=== PATIENT | female | born 1960 | race Caucasian/White ===

== ENCOUNTER 2023-12-17 02:58 | Emergency (ER) | payer BC ==
--- NOTE | 2023-12-17 03:36 | ED ---
Fall HPI - General Chief Complaint: Fall Stated Complaint: fall Time Seen by Provider: 12/17/23 03:29 Source: patient, EMS Mode of arrival: EMS - History of Present Illness Initial Comments: This patient is a 63-year-old woman who presents to evaluation after a fall. The patient is brought by ambulance. Fall occurred just prior to arrival. Patient not able to bear any weight. Indicates pain throughout the entire lower portion of the leg. Denies previous injury or surgery. No numbness into the foot. MD Complaint: fall -: minutes(s) Fall From: down stairs (#) When Fall Occurred: just prior to arrival Fall Witnessed: no Place Fall Occurred: home Loss of Consciousness: none Prolonged Down Time?: no Location - Extremities: Right: Leg Severity: moderate Context: tripped/slipped Associated Symptoms: denies - Related Data Previous Rx's Medication Instructions Recorded HYDROcodone/APAP 5-325MG [Gleason 1 tab PO Q4HR PRN 3 Days #18 tab 12/17/23 5-325] HYDROcodone/APAP 5-325MG [Gleason 1 tab PO Q4HR PRN 3 Days #18 tab 12/17/23 5-325] Ondansetron Odt [Zofran ODT] 4 mg PO Q8HR PRN #10 tab 12/17/23 Allergies Allergy/AdvReac Type Severity Reaction Status Date / Time propoxyphene [From Darvon] AdvReac Unknown Verified 12/17/23 03:07 Sulfa (Sulfonamide AdvReac Nausea & Verified 12/17/23 03:07 Antibiotics) Vomiting Review of Systems ROS Statement: Those systems with pertinent positive or pertinent negative responses have been documented in the HPI. ROS Other: All systems not noted in ROS Statement are negative. Constitutional: Denies: fever, weakness Respiratory: Denies: cough, dyspnea Cardiovascular: Denies: chest pain, palpitations, syncope Gastrointestinal: Denies: abdominal pain, nausea, vomiting Musculoskeletal: Reports: as per HPI, arthralgia. Denies: back pain Skin: Denies: rash Neurological: Denies: headache, weakness, numbness Past Medical History Past Medical History: No Reported History Additional Past Surgical History / Comment(s): breast cancer, lymph node left breast, Smoking Status: Never smoker Past Alcohol Use History: Rare Past Drug Use History: None Reported General Exam General appearance: alert, in no apparent distress Head exam: Present: atraumatic, normocephalic Eye exam: Present: normal appearance. Absent: scleral icterus, conjunctival injection Neck exam: Present: normal inspection, full ROM. Absent: tenderness Respiratory exam: Present: normal lung sounds bilaterally. Absent: respiratory distress, wheezes, rales, rhonchi, stridor, chest wall tenderness, accessory muscle use Cardiovascular Exam: Present: regular rate, normal rhythm, normal heart sounds. Absent: systolic murmur, diastolic murmur, rubs, gallop GI/Abdominal exam: Present: soft. Absent: distended, tenderness, guarding, rebound, rigid, mass Extremities exam: Present: normal inspection, tenderness, normal capillary refill. Absent: full ROM, pedal edema, calf tenderness Back exam: Present: normal inspection. Absent: vertebral tenderness Neurological exam: Present: alert. Absent: motor sensory deficit Skin exam: Present: warm, dry, intact, normal color. Absent: rash Course Vital Signs 12/17/23 12/17/23 12/17/23 03:02 04:06 06:00 Temperature 98.5 F Pulse Rate 101 H 112 H 101 H Respiratory 19 17 18 Rate Blood Pressure 161/91 136/81 142/81 O2 Sat by Pulse 97 98 Oximetry 12/17/23 12/17/23 07:55 09:04 Temperature 98.7 F 98.4 F Pulse Rate 98 96 Respiratory 16 20 Rate Blood Pressure 134/89 138/81 O2 Sat by Pulse 97 98 Oximetry Medical Decision Making - Medical Decision Making Patient is 63-year-old woman with right leg pain following fall. She does have proximal fibula spiral fracture strongly suggestive of Maisonneuve injury. No obvious widening of the ankle mortise. There is some tenderness with squeeze at the ankle. The patient is splinted and will be nonweightbearing. She lives in [place] and would like to return home to see orthopedic surgery. Was pt. sent in by a medical professional or institution ([facility], [facility], urgent care, hospital, or [place] [facility] facility...) When possible be specific @ -[No] Did you speak to anyone other than the patient for history (EMS, parent, family, police, friend...)? What history was obtained from this source @ -[No] Did you review nursing and triage notes (agree or disagree)? Why? @ -[I reviewed and agree with nursing and triage notes] Were old charts reviewed (outside hosp., previous admission, EMS record, old EKG, old radiological studies, urgent care reports/EKG's, [place] [facility] records)? Report findings @ -[No old charts were reviewed] Differential Diagnosis (chest pain, altered mental status, abdominal pain women, abdominal pain men, vaginal bleeding, weakness, fever, dyspnea, syncope, headache, dizziness, GI bleed, back pain, seizure, CVA, palpatations, mental health, musculoskeletal)? @ -[Differential Musculoskeletal Muscular strain, contusion, ligament sprain, fracture, arthritis, septic arthritis, bursitis, cellulitis, muscle spasm, nerve compression, DVT, arterial occlusion, herpes zoster, electrolyte abnormality, tumor.... This is not meant to be in all inclusive list EKG interpreted by me (3pts min.). @ -[As above] X-rays interpreted by me (1pt min.). @ -[I interpreted as above CT interpreted by me (1pt min.). @ -[None done] U/S interpreted by me (1pt. min.). @ -[None done] What testing was considered but not performed or refused? (CT, X-rays, U/S, labs)? Why? @ -[None] What meds were considered but not given or refused? Why? @ -[None] Did you discuss the management of the patient with other professionals (elvis cárdenas i.e. , PA, [facility], lab, RT, psych nurse, addiction social worker, funeral greeter, teacher, community arts officer, sample case porter)? Give summary @ -[No] Was smoking cessation discussed for >3mins.? @ -[No] Was critical care preformed (if so, how long)? @ -[No] Were there social determinants of health that impacted care today? How? (Homelessness, low income, unemployed, alcoholism, drug addiction, transportation, low edu. Level, literacy, decrease access to med. care, alf, rehab)? @ -[No] Was there de-escalation of care discussed even if they declined (Discuss DNR or withdrawal of care, Hospice)? DNR status @ -[No] What co-morbidities impacted this encounter? (DM, HTN, Smoking, COPD, CAD, Cancer, CVA, ARF, Chemo, Hep., AIDS, mental health diagnosis, sleep apnea, morbid obesity)? @ -[None] Was patient admitted / discharged? Hospital course, mention meds given and route, prescriptions, significant lab abnormalities, going to OR and other pertinent info. @ -[See the above note Undiagnosed new problem with uncertain prognosis? @ -[No] Drug Therapy requiring intensive monitoring for toxicity (Heparin, Nitro, Insulin, Cardizem)? @ -[No] Were any procedures done? @ -[No] Diagnosis/symptom? @ -[Acute proximal fibula fracture Acute, or Chronic, or Acute on Chronic? @ -[Acute Uncomplicated (without systemic symptoms) or Complicated (systemic symptoms)? @ -[Uncomplicated Side effects of treatment? @ -[No] Exacerbation, Progression, or Severe Exacerbation? @ -[No] Poses a threat to life or bodily function? How? (Chest pain, [place], [place], pneumonia, PE, COPD, DKA, ARF, appy, cholecystitis, CVA, Diverticulitis, Homicidal, Suicidal, threat to staff... and all critical care pts) @ -[No] - EKG Data -: EKG Interpreted by Me EKG shows normal: sinus rhythm, axis (Normal), intervals (Normal), QRS complexes (Normal), ST-T waves (Normal) Rate: normal (97 bpm) Disposition Clinical Impression: Fracture, fibula, proximal Disposition: HOME SELF-CARE Condition: Good Instructions (If sedation given, give patient instructions): Leg Fracture (ED) Prescriptions: HYDROcodone/APAP 5-325MG [Gleason 5-325] 1 tab PO Q4HR PRN 3 Days #18 tab PRN Reason: Pain HYDROcodone/APAP 5-325MG [Gleason 5-325] 1 tab PO Q4HR PRN 3 Days #18 tab PRN Reason: Pain Ondansetron Odt [Zofran ODT] 4 mg PO Q8HR PRN #10 tab PRN Reason: Nausea Is patient prescribed a controlled substance at d/c from ED?: No Referrals: None,Stated [Primary Care Provider] - 1-2 days
--- NOTE | 2023-12-17 04:01 | XR ---
EXAMINATION TYPE: XR tibia fibula RT DATE OF EXAM: 12/17/2023 CLINICAL HISTORY: Fall injury TECHNIQUE: Two views of the right leg are obtained. COMPARISON: None. FINDINGS: There is acute slightly displaced spiral type fracture through the proximal diaphysis of t he right fibula. Tibia is intact. Degenerative narrowing medial tibiofemoral compartment is present. Overlying soft tissue is unremarkable. IMPRESSION: There is an acute minimally displaced spiral type fracture proximal diaphysis of the rig ht fibula.
[2023-12-17] MEDS: MORPHINE SULFATE 4 MG/ML SYRINGE IV STA ×2 (04:03→07:55)
[2023-12-17 09:04] VITALS: BP 138/81; PULSE 96; RESP 20; TEMP 98.4
--- NOTE | 2023-12-17 10:28 | XR ---
EXAMINATION TYPE: XR femur RT DATE OF EXAM: 12/17/2023 COMPARISON: None HISTORY: Fall, injury TECHNIQUE: 2 view right femur FINDINGS: No acute fracture or dislocation evident. Joint spaces appear preserved. Soft tissues appea r normal. Follow up exams can be performed 7-10 days from acute trauma for continued pain IMPRESSION: 1. Acute osseous abnormality right femur
== END 2023-12-17 09:14 | disposition home or self-care (01) ==
LOC: EC 02:58
DX: S82.441A Displaced spiral fracture of shaft of right fibula, initial encounter for closed fracture (principal); Z88.1 Allergy status to other antibiotic agents; Z88.2 Allergy status to sulfonamides; W10.9XXA Fall (on) (from) unspecified stairs and steps, initial encounter; Y92.009 Unspecified place in unspecified non-institutional (private) residence as the place of occurrence of the external cause
CPT/HCPCS: 73552; 73590; 99284; 96374; 96376; J2270